=== PATIENT | female | born 1990 | race Caucasian/White ===

== ENCOUNTER 2016-07-24 19:05 | Outpatient (CLI) | payer OTHER ==
[~2016-07-24] VITALS: Ht 149.9 cm; Wt 58.2 kg
[~2016-07-24 19:05] MED LIST: FER325 PO; LABE100T3 PO; PRENAT PO
[2016-07-24] MEDS ORDERED: LABETALOL 100 MG TAB PO SCH (19:40)
[2016-07-24 19:42] VITALS: Ht 149.9 cm; Wt 58.2 kg
[2016-07-24 19:47] VITALS: BP 138/97; PULSE 71; RESP 18
[2016-07-24 20:09] LABS: ADD UMIC YES; URINE BILIRUBIN (Dip) NEGATIVE (NEGATIVE); URINE BLOOD (Dip) NEGATIVE (NEGATIVE); URINE COLOR LT. YELLOW (YELLOW); URINE GLUCOSE (Dip) NEGATIVE (NEGATIVE); URINE KETONES (Dip) NEGATIVE (NEGATIVE); URINE LEUKOCYTE ESTERASE (Dip) TRACE (NEGATIVE); URINE NITRITE (Dip) NEGATIVE (NEGATIVE); URINE TOTAL PROTEIN (Dip) NEGATIVE (NEGATIVE); URINE UROBILINOGEN (Dip) 0.2 E.U./dL (0.1-1.0)
[2016-07-24 20:23] LABS: BACTERIA,URINE RARE; SQUAMOUS EPITHELIAL CELL,UR FEW; URINE RBCS NONE SEEN /HPF (0)
[2016-07-24 20:27] LABS: ALBUMIN 3.4 g/dl (3.3-4.9); INR 0.91; PROTIME 12.3 Sec (12.2-14.2)
[2016-07-24 20:28] LABS: PARTIAL THROMBOPLASTIN TIME 23.3 Sec (25.0-35.0); POTASSIUM 3.1 mmol/L (3.5-5.1)
[2016-07-24 20:30] LABS: ALBUMIN/GLOBULIN RATIO 1.06; BILIRUBIN,INDIRECT 0.1 mg/dl (0-1.1); BILIRUBIN,TOTAL 0.1 mg/dl (0.2-1.3); CREATININE 0.45 mg/dl (0.44-1.00); TOTAL PROTEIN 6.6 g/dl (6.1-8.1)
[2016-07-24 20:31] LABS: CALCIUM 8.5 mg/dl (8.4-10.2); URIC ACID 3.2 mg/dl (3.1-7.9)
[2016-07-24 23:29] LABS: HEMATOCRIT 30.2 % (37.0-47.0); HEMOGLOBIN 10.3 g/dl (12.0-16.0); MEAN CORPUSCULAR HEMOGLOBIN 31.8 pg (29.0-33.0); MEAN CORPUSCULAR HGB CONC 34.1 g/dl (32.0-37.0); MEAN CORPUSCULAR VOLUME 93.2 fl (82.0-101.0); PLATELET COUNT 161 10^3/UL (140-440); RED BLOOD COUNT 3.24 10^6/ul (4.20-5.40); UNCORRECTED WBC 6.7 10^3/ul (4.8-10.8); WHITE BLOOD COUNT 6.7 10^3/ul (4.8-10.8)
[2016-07-24 23:30] LABS: BASOPHILS % 0.1 % (0.0-2.0); EOSINOPHILS % 0.3 % (0.0-7.0); LYMPHOCYTES # 1.5 10^3/ul (0.8-2.9); LYMPHOCYTES % 22.8 % (15.0-51.0); MONOCYTE # 0.7 10^3/ul (0.3-0.9); NEUTROPHIL # 4.4 10^3/ul (1.6-7.5); NEUTROPHILS % 66.2 % (39.0-77.0)
--- NOTE | 2016-07-24 23:42 | TRIAGE ---
OB Triage Datetime Report Generated by CPN: 07/24/2016 23:41 Datetime: 07/24/2016 22:02 Stage of : OB Triage Headache: Denies Nausea/Vomiting: Denies RUQ Epigastric Pain: Denies Labor Evaluation Frequency: Irregular Monitor Mode: External Duration (sec)2399: 40-80 Quality: Mild Pattern: Normal: <= 5 Contractions in 10 Minutes Resting Tone Kennedy: Relaxed Heart Rate FHR Baseline Rate: 130 Monitor Mode: External US FHR Baseline Changes: No Baseline Change Variability: Moderate 6-25 bpm Accelerations: 15X15 Decelerations: None Category: Category I Pain Assessment Pain Scale: 0 Pain Presence: None/Denies Pain Type: N/A Datetime: 07/24/2016 22:01 Stage of : OB Triage Datetime: 07/24/2016 21:00 Stage of : OB Triage Labor Evaluation Frequency: Irregular Monitor Mode: External Duration (sec)2399: 40-130 Quality: Mild Pattern: Normal: <= 5 Contractions in 10 Minutes Resting Tone Kennedy: Relaxed Heart Rate FHR Baseline Rate: 130 Monitor Mode: External US FHR Baseline Changes: No Baseline Change Variability: Moderate 6-25 bpm Accelerations: 15X15 Decelerations: None Category: Category I Datetime: 07/24/2016 20:00 Stage of : OB Triage Labor Evaluation Frequency: x1 Monitor Mode: External Duration (sec)2399: 60 Quality: Mild Pattern: Normal: <= 5 Contractions in 10 Minutes Resting Tone Kennedy: Relaxed Heart Rate FHR Baseline Rate: 130 Monitor Mode: External US Variability: Moderate 6-25 bpm Accelerations: 15X15 Decelerations: None Category: Category I Datetime: 07/24/2016 19:35 Stage of : OB Triage Datetime: 07/24/2016 19:25 Stage of : OB Triage Datetime: 07/24/2016 19:21 Monitor Mode: External Contraction Comments: Kennedy applied Heart Rate FHR Baseline Rate: 150 Monitor Mode: External US Comments: EFM applied Datetime: 07/24/2016 19:17 Stage of : OB Triage Assessment Type: Triage Maternal Assessment Level of Consciousness: Fully Conscious DTR's/Clonus: DTRs 2+; No Clonus Headache: Denies Blurred Vision: No Respiratory Effort: Unlabored; Regular Rhythm; Equal Expansion Breath Sounds, Left: Clear and Equal Breath Sounds, Right: Clear and Equal Nausea/Vomiting: Denies RUQ Epigastric Pain: Denies Lower Extremities Edema: None Degree: None Upper Extremities Edema: None Degree: None Facial Edema: None Temperature Route: Oral Fall Risk Assessment History of Falling: (0) No Secondary Diagnosis: (0) No Ambulatory Aid: (0) Bedrest/Nurse Assist IV Therapy: (0) No Gait: (0) Normal/Bedrest/Immobile Mental Status: (0) Oriented to Own Ability Fall Score: 0 Fall Risk Score Definition: No Risk: No action required Pain Assessment Pain Scale: 0 Pain Presence: None/Denies Pain Type: N/A Datetime: 07/24/2016 19:16 Time of Arrival: 07/24/2016 18:55 EGA: 34.6 Arrived By: Ambulatory Arrived From: Dr. Alves Chief Complaint: High BP in office. Currently on Labetalol. Didn't take it today. Rx ran out. Went to clinic for refill but BP elevated so sent to hospital. Movement: Present Contractions: Denies/Absent Rupture of Membranes: Denies Vaginal Bleeding: None Vaginal Discharge: Denies Abdominal Trauma: Not Applicable Patient Complaints: None Time Provider Notified: 07/24/2016 19:35 Provider Notified: Initial Plan: PIH panel, Labetalol 100mg PO stat, BPs [id number] x2hrs Datetime: 06/23/2016 11:00 Labor Evaluation Frequency: NONE Monitor Mode: External Pattern: Normal: <= 5 Contractions in 10 Minutes Resting Tone Kennedy: Relaxed Heart Rate FHR Baseline Rate: 140 Monitor Mode: External US FHR Baseline Changes: No Baseline Change Variability: Moderate 6-25 bpm Accelerations: 15X15 Decelerations: None Category: Category I Pain Assessment Pain Scale: 0 Pain Presence: None/Denies Pain Type: N/A Pain Goal: 2 Datetime: 06/23/2016 10:00 Labor Evaluation Frequency: NONE Monitor Mode: External Pattern: Normal: <= 5 Contractions in 10 Minutes Resting Tone Kennedy: Relaxed Contraction Comments: PT DENIES ABDOMINAL PAIN, CRAMPING OR UC'S Heart Rate FHR Baseline Rate: 135 Monitor Mode: External US FHR Baseline Changes: No Baseline Change Variability: Moderate 6-25 bpm Accelerations: 15X15 Decelerations: None Category: Category I Pain Assessment Pain Scale: 0 Pain Presence: None/Denies Pain Type: N/A Pain Goal: 2 Datetime: 06/23/2016 09:00 Labor Evaluation Frequency: NONE Monitor Mode: External Pattern: Normal: <= 5 Contractions in 10 Minutes Resting Tone Kennedy: Relaxed Contraction Comments: PT DENIES FEELING ABDOMINAL PAIN, CRAMPING OR UC'S Heart Rate FHR Baseline Rate: 135 Monitor Mode: External US FHR Baseline Changes: No Baseline Change Variability: Moderate 6-25 bpm Accelerations: 10X10 Decelerations: None Category: Category I Datetime: 06/23/2016 08:48 Pain Assessment Pain Scale: 0 Pain Presence: None/Denies Pain Type: N/A Pain Goal: 2 Datetime: 06/23/2016 08:00 Assessment Type: Ongoing Assessment Maternal Assessment Level of Consciousness: Fully Conscious DTR's/Clonus: DTRs 2+; No Clonus Headache: Denies Blurred Vision: No Respiratory Effort: Unlabored; Regular Rhythm; Equal Expansion Breath Sounds, Left: Clear and Equal Breath Sounds, Right: Clear and Equal Nausea/Vomiting: Denies RUQ Epigastric Pain: Denies Lower Extremities Edema: None Upper Extremities Edema: None Facial Edema: None Fall Risk Assessment History of Falling: (0) No Secondary Diagnosis: (0) No Ambulatory Aid: (0) Bedrest/Nurse Assist IV Therapy: (20) Yes Gait: (0) Normal/Bedrest/Immobile Mental Status: (0) Oriented to Own Ability Fall Score: 20 Fall Risk Score Definition: No Risk: No action required Labor Evaluation Frequency: NONE Monitor Mode: External Resting Tone Kennedy: Relaxed Contraction Comments: PT DENIES FEELILNG UC'S, ABDOMINAL PAIN, OR CRAMPING Heart Rate FHR Baseline Rate: 140 Monitor Mode: External US FHR Baseline Changes: No Baseline Change Variability: Moderate 6-25 bpm Accelerations: 10X10 Decelerations: None Category: Category I Datetime: 06/23/2016 07:00 Labor Evaluation Frequency: none Monitor Mode: External Resting Tone Kennedy: Relaxed Heart Rate FHR Baseline Rate: 135 Monitor Mode: External US Variability: Moderate 6-25 bpm Accelerations: 15X15 Decelerations: None Category: Category I Datetime: 06/23/2016 06:00 Labor Evaluation Frequency: none Monitor Mode: External Resting Tone Kennedy: Relaxed Heart Rate FHR Baseline Rate: 135 Monitor Mode: External US Variability: Moderate 6-25 bpm Accelerations: 10X10 Decelerations: None Category: Category I Datetime: 06/23/2016 05:29 Stage of : Antepartum Temperature Route: Oral Datetime: 06/23/2016 05:00 Labor Evaluation Frequency: x1 Monitor Mode: External Duration (sec)2399: 50 Quality: Mild Resting Tone Kennedy: Relaxed Contraction Comments: pt without complaint of uc pain Heart Rate FHR Baseline Rate: 130 Monitor Mode: External US Variability: Moderate 6-25 bpm Accelerations: 10X10 Decelerations: None Category: Category I Datetime: 06/23/2016 04:00 Labor Evaluation Frequency: none Monitor Mode: External Resting Tone Kennedy: Relaxed Heart Rate FHR Baseline Rate: 130 Monitor Mode: External US Variability: Moderate 6-25 bpm Accelerations: 15X15 Decelerations: None Category: Category I Datetime: 06/23/2016 03:00 Labor Evaluation Frequency: x2 Monitor Mode: External Duration (sec)2399: 40-50 Quality: Mild Resting Tone Kennedy: Relaxed Contraction Comments: pt without complaint of uc pain Datetime: 06/23/2016 02:00 Labor Evaluation Frequency: none Monitor Mode: External Resting Tone Kennedy: Relaxed Heart Rate FHR Baseline Rate: 125 Monitor Mode: External US Variability: Moderate 6-25 bpm Accelerations: 10X10 Decelerations: None Category: Category I Datetime: 06/23/2016 01:00 Labor Evaluation Frequency: x1 Monitor Mode: External Duration (sec)2399: 50 Quality: Mild Resting Tone Kennedy: Relaxed Contraction Comments: pt without complaint of uc pain Heart Rate FHR Baseline Rate: 120 Monitor Mode: External US Variability: Moderate 6-25 bpm Accelerations: 10X10 Decelerations: None Category: Category I Datetime: 06/23/2016 00:00 Labor Evaluation Frequency: none Monitor Mode: External Resting Tone Kennedy: Relaxed Heart Rate FHR Baseline Rate: 120 Monitor Mode: External US Variability: Moderate 6-25 bpm Accelerations: 15X15 Decelerations: None Category: Category I Datetime: 06/22/2016 23:00 Labor Evaluation Frequency: none Monitor Mode: External Resting Tone Kennedy: Relaxed Heart Rate FHR Baseline Rate: 130 Monitor Mode: External US Variability: Moderate 6-25 bpm Accelerations: 15X15 Decelerations: None Category: Category I Datetime: 06/22/2016 22:00 Labor Evaluation Frequency: none Monitor Mode: External Resting Tone Kennedy: Relaxed Heart Rate FHR Baseline Rate: 130 Monitor Mode: External US Variability: Moderate 6-25 bpm Accelerations: 15X15 Decelerations: None Category: Category I Pain Presence: None/Denies Datetime: 06/22/2016 21:00 Labor Evaluation Frequency: none Monitor Mode: External Resting Tone Kennedy: Relaxed Heart Rate FHR Baseline Rate: 140 Monitor Mode: External US Variability: Moderate 6-25 bpm Accelerations: 10X10 Decelerations: None Category: Category I Datetime: 06/22/2016 20:18 Assessment Type: Ongoing Assessment Maternal Assessment Level of Consciousness: Fully Conscious DTR's/Clonus: DTRs 2+; No Clonus Headache: Denies Blurred Vision: No Respiratory Effort: Unlabored; Regular Rhythm; Equal Expansion Breath Sounds, Left: Clear and Equal Breath Sounds, Right: Clear and Equal Nausea/Vomiting: Denies RUQ Epigastric Pain: Denies Lower Extremities Edema: None Degree: None Upper Extremities Edema: None Degree: None Facial Edema: None Fall Risk Assessment History of Falling: (0) No Secondary Diagnosis: (0) No Ambulatory Aid: (0) Bedrest/Nurse Assist IV Therapy: (20) Yes Gait: (0) Normal/Bedrest/Immobile Mental Status: (0) Oriented to Own Ability Fall Score: 20 Fall Risk Score Definition: No Risk: No action required Datetime: 06/22/2016 20:13 Stage of : Antepartum Temperature Route: Oral Datetime: 06/22/2016 20:00 Labor Evaluation Frequency: none Monitor Mode: External Resting Tone Kennedy: Relaxed Heart Rate FHR Baseline Rate: 130 Monitor Mode: External US Variability: Moderate 6-25 bpm Accelerations: 10X10 Decelerations: None Category: Category I Pain Presence: None/Denies Datetime: 06/22/2016 18:00 Stage of : Antepartum Maternal Assessment Level of Consciousness: Fully Conscious Headache: Denies Nausea/Vomiting: Denies RUQ Epigastric Pain: Denies Labor Evaluation Frequency: 0/hr Monitor Mode: External Heart Rate FHR Baseline Rate: 125 Monitor Mode: External US Variability: Moderate 6-25 bpm Accelerations: 15X15 Decelerations: None Pain Assessment Pain Scale: 0 Pain Presence: None/Denies Vaginal Bleeding: None Datetime: 06/22/2016 17:02 Stage of : Antepartum Maternal Assessment Level of Consciousness: Fully Conscious DTR's/Clonus: DTRs 2+ Headache: Denies Nausea/Vomiting: Denies RUQ Epigastric Pain: Denies Labor Evaluation Frequency: 0/hr Monitor Mode: External Heart Rate FHR Baseline Rate: 125 Monitor Mode: External US Variability: Moderate 6-25 bpm Accelerations: 15X15 Decelerations: None Pain Assessment Pain Scale: 0 Pain Presence: None/Denies Vaginal Bleeding: None Datetime: 06/22/2016 16:00 Stage of : Antepartum Maternal Assessment Level of Consciousness: Fully Conscious Headache: Denies Nausea/Vomiting: Denies RUQ Epigastric Pain: Denies Labor Evaluation Frequency: 0/hr Monitor Mode: External Heart Rate FHR Baseline Rate: 125 Monitor Mode: External US Variability: Moderate 6-25 bpm Accelerations: 15X15 Decelerations: None Pain Assessment Pain Scale: 0 Pain Presence: None/Denies Vaginal Bleeding: None Datetime: 06/22/2016 15:00 Stage of : Antepartum Maternal Assessment Level of Consciousness: Fully Conscious Headache: Denies Nausea/Vomiting: Denies RUQ Epigastric Pain: Denies Labor Evaluation Frequency: 0/hr Monitor Mode: External Heart Rate FHR Baseline Rate: 130 Monitor Mode: External US Variability: Moderate 6-25 bpm Accelerations: 15X15 Decelerations: None Pain Assessment Pain Scale: 0 Pain Presence: None/Denies Vaginal Bleeding: None Datetime: 06/22/2016 14:30 Pain Presence: None/Denies Datetime: 06/22/2016 14:00 Stage of : Antepartum Maternal Assessment Level of Consciousness: Fully Conscious DTR's/Clonus: DTRs 2+ Headache: Denies Nausea/Vomiting: Denies RUQ Epigastric Pain: Denies Labor Evaluation Frequency: 0/hr Monitor Mode: External Heart Rate FHR Baseline Rate: 125 Monitor Mode: External US Variability: Moderate 6-25 bpm Accelerations: 15X15 Decelerations: None Pain Assessment Pain Scale: 0 Pain Presence: None/Denies Vaginal Bleeding: None Datetime: 06/22/2016 13:01 Stage of : Antepartum Maternal Assessment Level of Consciousness: Fully Conscious Headache: Denies Nausea/Vomiting: Denies RUQ Epigastric Pain: Denies Labor Evaluation Frequency: 0/hr Monitor Mode: External Heart Rate FHR Baseline Rate: 125 Monitor Mode: External US Variability: Moderate 6-25 bpm Decelerations: None Pain Assessment Pain Scale: 0 Pain Presence: None/Denies Vaginal Bleeding: None Datetime: 06/22/2016 12:50 Maternal Assessment Level of Consciousness: Fully Conscious DTR's/Clonus: DTRs 2+ Headache: Denies Blurred Vision: No Nausea/Vomiting: Denies RUQ Epigastric Pain: Denies Datetime: 06/22/2016 12:09 Stage of : Antepartum Maternal Assessment Level of Consciousness: Fully Conscious Headache: Denies Nausea/Vomiting: Denies RUQ Epigastric Pain: Denies Labor Evaluation Frequency: 0/hr Monitor Mode: External Heart Rate FHR Baseline Rate: 125 Monitor Mode: External US Variability: Moderate 6-25 bpm Accelerations: 15X15 Decelerations: None Pain Assessment Pain Scale: 0 Pain Presence: None/Denies Vaginal Bleeding: None Datetime: 06/22/2016 11:02 Stage of : Antepartum Maternal Assessment Level of Consciousness: Fully Conscious DTR's/Clonus: DTRs 2+ Headache: Denies Breath Sounds, Left: Clear and Equal Breath Sounds, Right: Clear and Equal Nausea/Vomiting: Denies RUQ Epigastric Pain: Denies Labor Evaluation Frequency: 0/hr Monitor Mode: External Heart Rate FHR Baseline Rate: 125 Monitor Mode: External US Variability: Moderate 6-25 bpm Decelerations: None Comments: ega 30.2 Pain Assessment Pain Scale: 0 Pain Presence: None/Denies Vaginal Bleeding: None Datetime: 06/22/2016 10:40 Heart Rate FHR Baseline Rate: 125 Monitor Mode: External US Variability: Moderate 6-25 bpm Decelerations: None Datetime: 06/22/2016 10:22 Stage of : Antepartum Datetime: 06/22/2016 10:21 Maternal Assessment Level of Consciousness: Fully Conscious DTR's/Clonus: DTRs 2+ Headache: Denies Blurred Vision: Yes Respiratory Effort: Unlabored Breath Sounds, Left: Clear and Equal Breath Sounds, Right: Clear and Equal Nausea/Vomiting: Denies RUQ Epigastric Pain: Denies Datetime: 06/22/2016 10:01 Stage of : Antepartum Maternal Assessment Level of Consciousness: Fully Conscious Headache: Denies Nausea/Vomiting: Denies RUQ Epigastric Pain: Denies Labor Evaluation Frequency: occassional Monitor Mode: External Duration (sec)2399: 60 Heart Rate FHR Baseline Rate: 125 Monitor Mode: External US Variability: Moderate 6-25 bpm Decelerations: None Pain Assessment Pain Scale: 0 Pain Presence: None/Denies Vaginal Bleeding: None Datetime: 06/22/2016 09:01 Stage of : Antepartum Maternal Assessment Level of Consciousness: Fully Conscious DTR's/Clonus: DTRs 2+ Headache: Denies Nausea/Vomiting: Denies RUQ Epigastric Pain: Denies Labor Evaluation Frequency: 1/hr Monitor Mode: External Duration (sec)2399: 60 Quality: Mild Resting Tone Kennedy: Relaxed Heart Rate FHR Baseline Rate: 125 Monitor Mode: External US Variability: Moderate 6-25 bpm Decelerations: None Comments: ega 30.2 Pain Assessment Pain Scale: 0 Pain Presence: None/Denies Vaginal Bleeding: None Datetime: 06/22/2016 08:03 Stage of : Antepartum Maternal Assessment Level of Consciousness: Fully Conscious Headache: Denies Nausea/Vomiting: Denies RUQ Epigastric Pain: Denies Labor Evaluation Frequency: 0/hr Monitor Mode: External Resting Tone Kennedy: Relaxed Heart Rate FHR Baseline Rate: 125 Monitor Mode: External US Variability: Moderate 6-25 bpm Pain Assessment Pain Scale: 0 Pain Presence: None/Denies Vaginal Bleeding: None Datetime: 06/22/2016 07:16 Stage of : Antepartum Assessment Type: Ongoing Assessment Maternal Assessment Level of Consciousness: Fully Conscious Maternal Assessment Level of Consciousness: Fully Conscious DTR's/Clonus: DTRs 2+; No Clonus DTR's/Clonus: DTRs 2+ Headache: Denies Headache: Denies Blurred Vision: No Respiratory Effort: Unlabored; Regular Rhythm; Equal Expansion Breath Sounds, Left: Clear and Equal Breath Sounds, Left: Clear and Equal Breath Sounds, Right: Clear and Equal Breath Sounds, Right: Clear and Equal Nausea/Vomiting: Denies Nausea/Vomiting: Denies RUQ Epigastric Pain: Denies RUQ Epigastric Pain: Denies Lower Extremities Edema: None Upper Extremities Edema: None Facial Edema: None Temperature Route: Oral Fall Risk Assessment History of Falling: (0) No Secondary Diagnosis: (0) No Ambulatory Aid: (0) Bedrest/Nurse Assist IV Therapy: (20) Yes Gait: (0) Normal/Bedrest/Immobile Mental Status: (0) Oriented to Own Ability Fall Score: 20 Fall Risk Score Definition: No Risk: No action required Labor Evaluation Frequency: 0/hr Monitor Mode: External Resting Tone Kennedy: Relaxed Heart Rate FHR Baseline Rate: 125 Monitor Mode: External US Variability: Moderate 6-25 bpm Pain Assessment Pain Scale: 0 Pain Presence: None/Denies Vaginal Exam Membrane Status: Intact Vaginal Bleeding: None Datetime: 06/22/2016 06:35 Stage of : Antepartum Maternal Assessment Level of Consciousness: Fully Conscious Labor Evaluation Frequency: 0 Monitor Mode: External Resting Tone Kennedy: Relaxed Heart Rate FHR Baseline Rate: 120 Monitor Mode: External US FHR Baseline Changes: No Baseline Change Variability: Moderate 6-25 bpm Accelerations: 10X10 Decelerations: None Pain Assessment Pain Scale: 0 Pain Location: Head Pain Goal: 3 Pain Relief Measures: Comfort Measures Datetime: 06/22/2016 05:35 Stage of : Antepartum Maternal Assessment Level of Consciousness: Fully Conscious Labor Evaluation Frequency: 0 Monitor Mode: External Resting Tone Kennedy: Relaxed Heart Rate FHR Baseline Rate: 120 Monitor Mode: External US FHR Baseline Changes: No Baseline Change Variability: Moderate 6-25 bpm Accelerations: 10X10 Decelerations: None Pain Assessment Pain Scale: 0 Pain Location: Head Pain Goal: 3 Pain Relief Measures: Comfort Measures Datetime: 06/22/2016 04:35 Stage of : Antepartum Maternal Assessment Level of Consciousness: Fully Conscious Labor Evaluation Frequency: 0 Monitor Mode: External Resting Tone Kennedy: Relaxed Heart Rate FHR Baseline Rate: 120 Monitor Mode: External US FHR Baseline Changes: No Baseline Change Variability: Moderate 6-25 bpm Accelerations: 10X10 Decelerations: None Pain Assessment Pain Scale: 0 Pain Location: Head Pain Goal: 3 Pain Relief Measures: Comfort Measures Datetime: 06/22/2016 03:36 Stage of : Antepartum Maternal Assessment Level of Consciousness: Fully Conscious Temperature Route: Oral Labor Evaluation Frequency: 0 Monitor Mode: External Resting Tone Kennedy: Relaxed Heart Rate FHR Baseline Rate: 118 Monitor Mode: External US FHR Baseline Changes: No Baseline Change Variability: Moderate 6-25 bpm Accelerations: 10X10 Decelerations: None Pain Assessment Pain Scale: 0 Pain Location: Head Pain Goal: 3 Pain Relief Measures: Comfort Measures Datetime: 06/22/2016 02:41 Stage of : Antepartum Maternal Assessment Level of Consciousness: Fully Conscious Labor Evaluation Frequency: 0 Monitor Mode: External Resting Tone Kennedy: Relaxed Heart Rate FHR Baseline Rate: 118 Monitor Mode: External US FHR Baseline Changes: No Baseline Change Variability: Moderate 6-25 bpm Accelerations: 10X10 Decelerations: None Pain Assessment Pain Scale: 0 Pain Location: Head Pain Goal: 3 Pain Relief Measures: Comfort Measures Datetime: 06/22/2016 01:36 Stage of : Antepartum Maternal Assessment Level of Consciousness: Fully Conscious Labor Evaluation Frequency: 0 Monitor Mode: External Resting Tone Kennedy: Relaxed Heart Rate FHR Baseline Rate: 118 Monitor Mode: External US FHR Baseline Changes: No Baseline Change Variability: Moderate 6-25 bpm Accelerations: 10X10 Decelerations: None Pain Assessment Pain Scale: 0 Pain Location: Head Pain Goal: 3 Pain Relief Measures: Comfort Measures Datetime: 06/22/2016 00:35 Stage of : Antepartum Maternal Assessment Level of Consciousness: Fully Conscious DTR's/Clonus: DTRs 2+; No Clonus Headache: Denies Breath Sounds, Left: Clear and Equal Breath Sounds, Right: Clear and Equal Labor Evaluation Frequency: 0 Monitor Mode: External Resting Tone Kennedy: Relaxed Heart Rate FHR Baseline Rate: 135 Monitor Mode: External US FHR Baseline Changes: No Baseline Change Variability: Moderate 6-25 bpm Accelerations: 10X10 Decelerations: None Pain Assessment Pain Scale: 0 Pain Location: Head Pain Goal: 3 Pain Relief Measures: Comfort Measures Datetime: 06/21/2016 23:35 Stage of : Antepartum Maternal Assessment Level of Consciousness: Fully Conscious DTR's/Clonus: DTRs 2+; No Clonus Headache: Denies Breath Sounds, Left: Clear and Equal Breath Sounds, Right: Clear and Equal Temperature Route: Oral Labor Evaluation Frequency: 0 Monitor Mode: External Resting Tone Kennedy: Relaxed Heart Rate FHR Baseline Rate: 135 Monitor Mode: External US FHR Baseline Changes: No Baseline Change Variability: Moderate 6-25 bpm Accelerations: 10X10 Decelerations: None Pain Assessment Pain Scale: 0 Pain Location: Head Pain Goal: 3 Pain Relief Measures: Comfort Measures Datetime: 06/21/2016 22:35 Stage of : Antepartum Maternal Assessment Level of Consciousness: Fully Conscious DTR's/Clonus: DTRs 2+; No Clonus Headache: Denies Breath Sounds, Left: Clear and Equal Breath Sounds, Right: Clear and Equal Nausea/Vomiting: Denies RUQ Epigastric Pain: Denies Labor Evaluation Frequency: 0 Monitor Mode: External Resting Tone Kennedy: Relaxed Heart Rate FHR Baseline Rate: 135 Monitor Mode: External US FHR Baseline Changes: No Baseline Change Variability: Moderate 6-25 bpm Accelerations: 10X10 Decelerations: None Pain Assessment Pain Scale: 0 Pain Location: Head Pain Goal: 3 Pain Relief Measures: Comfort Measures Datetime: 06/21/2016 21:35 Stage of : Antepartum Maternal Assessment Level of Consciousness: Fully Conscious DTR's/Clonus: DTRs 2+; No Clonus Headache: Denies Breath Sounds, Left: Clear and Equal Breath Sounds, Right: Clear and Equal Nausea/Vomiting: Denies RUQ Epigastric Pain: Denies Labor Evaluation Frequency: 0 Monitor Mode: External Resting Tone Kennedy: Relaxed Heart Rate FHR Baseline Rate: 135 Monitor Mode: External US FHR Baseline Changes: No Baseline Change Variability: Moderate 6-25 bpm Accelerations: 10X10 Decelerations: None Pain Assessment Pain Scale: 0 Pain Location: Head Pain Goal: 3 Pain Relief Measures: Comfort Measures Datetime: 06/21/2016 20:35 Stage of : Antepartum Maternal Assessment Level of Consciousness: Fully Conscious DTR's/Clonus: DTRs 2+; No Clonus Headache: Denies Breath Sounds, Left: Clear and Equal Breath Sounds, Right: Clear and Equal Nausea/Vomiting: Denies RUQ Epigastric Pain: Denies Labor Evaluation Frequency: 0 Monitor Mode: External Resting Tone Kennedy: Relaxed Heart Rate FHR Baseline Rate: 135 Monitor Mode: External US FHR Baseline Changes: No Baseline Change Variability: Moderate 6-25 bpm Accelerations: 10X10 Decelerations: None Pain Assessment Pain Scale: 0 Pain Location: Head Pain Goal: 3 Pain Relief Measures: Comfort Measures Datetime: 06/21/2016 19:35 Stage of : Antepartum Assessment Type: Admission Assessment Maternal Assessment Level of Consciousness: Fully Conscious DTR's/Clonus: DTRs 2+; No Clonus Headache: Denies Blurred Vision: No Respiratory Effort: Unlabored; Regular Rhythm; Equal Expansion Breath Sounds, Left: Clear and Equal Breath Sounds, Right: Clear and Equal Nausea/Vomiting: Denies RUQ Epigastric Pain: Denies Facial Edema: None Temperature Route: Oral Fall Risk Assessment History of Falling: (0) No Secondary Diagnosis: (0) No Ambulatory Aid: (0) Bedrest/Nurse Assist IV Therapy: (20) Yes Gait: (0) Normal/Bedrest/Immobile Mental Status: (0) Oriented to Own Ability Fall Score: 20 Fall Risk Score Definition: No Risk: No action required Labor Evaluation Frequency: 0 Monitor Mode: External Resting Tone Kennedy: Relaxed Heart Rate FHR Baseline Rate: 135 Monitor Mode: External US FHR Baseline Changes: No Baseline Change Variability: Moderate 6-25 bpm Accelerations: 10X10 Decelerations: None Category: Category I Pain Assessment Pain Scale: 0 Pain Location: Head Pain Goal: 3 Pain Relief Measures: Comfort Measures Datetime: 06/21/2016 18:43 Assessment Type: Admission Assessment Vaginal Bleeding: None Maternal Assessment Level of Consciousness: Fully Conscious DTR's/Clonus: DTRs 2+; No Clonus Headache: Denies Blurred Vision: No Respiratory Effort: Unlabored; Regular Rhythm; Equal Expansion Breath Sounds, Left: Clear and Equal Breath Sounds, Right: Clear and Equal Nausea/Vomiting: Denies RUQ Epigastric Pain: Denies Facial Edema: None Fall Risk Assessment History of Falling: (0) No Secondary Diagnosis: (0) No Ambulatory Aid: (0) Bedrest/Nurse Assist IV Therapy: (20) Yes Gait: (0) Normal/Bedrest/Immobile Mental Status: (0) Oriented to Own Ability Fall Score: 20 Fall Risk Score Definition: No Risk: No action required Pain Assessment Pain Scale: 0 Pain Presence: None/Denies Datetime: 06/21/2016 18:28 Stage of : Antepartum Maternal Assessment Level of Consciousness: Fully Conscious DTR's/Clonus: DTRs 2+ Headache: Denies Breath Sounds, Left: Clear and Equal Breath Sounds, Right: Clear and Equal Nausea/Vomiting: Denies RUQ Epigastric Pain: Denies Temperature Route: Oral Monitor Mode: External Monitor Mode: External US Pain Assessment Pain Scale: 0 Pain Presence: None/Denies Vaginal Exam Membrane Status: Intact Vaginal Bleeding: None Datetime: 06/21/2016 18:07 Heart Rate FHR Baseline Rate: 145 Variability: Moderate 6-25 bpm Decelerations: None Datetime: 06/21/2016 17:36 Stage of : Antepartum Datetime: 06/21/2016 17:28 Stage of : OB Triage Datetime: 06/21/2016 17:15 Maternal Assessment Level of Consciousness: Fully Conscious DTR's/Clonus: DTRs 2+; No Clonus Headache: Denies Blurred Vision: No Nausea/Vomiting: Denies RUQ Epigastric Pain: Denies Facial Edema: None Labor Evaluation Frequency: 0 Monitor Mode: External Resting Tone Kennedy: Relaxed Heart Rate FHR Baseline Rate: 140 Monitor Mode: External US FHR Baseline Changes: No Baseline Change Variability: Moderate 6-25 bpm Accelerations: 15X15 Decelerations: None Category: Category I Pain Assessment Pain Scale: 0 Pain Presence: None/Denies Pain Type: N/A Datetime: 06/21/2016 17:00 Stage of : OB Triage Datetime: 06/21/2016 16:50 Assessment Type: Triage Maternal Assessment Level of Consciousness: Fully Conscious DTR's/Clonus: DTRs 2+; No Clonus Headache: Denies Blurred Vision: No Respiratory Effort: Unlabored; Regular Rhythm Breath Sounds, Left: Clear and Equal Breath Sounds, Right: Clear and Equal Nausea/Vomiting: Denies RUQ Epigastric Pain: Denies Lower Extremities Edema: None Degree: None Upper Extremities Edema: None Degree: None Facial Edema: None Fall Risk Assessment History of Falling: (0) No Secondary Diagnosis: (0) No Ambulatory Aid: (0) Bedrest/Nurse Assist IV Therapy: (0) No Gait: (0) Normal/Bedrest/Immobile Mental Status: (0) Oriented to Own Ability Fall Score: 0 Fall Risk Score Definition: No Risk: No action required Datetime: 06/21/2016 16:48 Time of Arrival: 06/21/2016 17:30 EGA: 30.1 Arrived By: Stretcher Arrived From: Dr. Alves Movement: Present Contractions: Denies/Absent Vaginal Discharge: Denies Recent Sexual Intercouse: Denies Datetime: 06/21/2016 16:45 Stage of : OB Triage Datetime: 06/21/2016 16:41 Pain Assessment Pain Scale: 0 Pain Presence: None/Denies Pain Type: N/A Datetime: 06/21/2016 16:39 Stage of : OB Triage Monitor Mode: External US Datetime: 06/21/2016 16:37 Time of Arrival: 06/21/2016 16:28 Arrived By: Ambulatory Arrived From: Office Chief Complaint: PT PRESENTS TO TRIAGE FOR EVALUATION DUE TO HIGH BLOOD PRESSURES IN CLINIC Movement: Present Contractions: Denies/Absent Rupture of Membranes: Denies Vaginal Bleeding: None Vaginal Discharge: Denies Recent Sexual Intercouse: Denies Abdominal Trauma: Not Applicable Patient Complaints: None Time Provider Notified: 06/21/2016 17:00 Provider Notified: LUCIANA Initial Plan: EFM/PIH LABS, BPP, EFW,
== END 2016-07-24 22:16 | disposition home or self-care (01) ==
LOC: OBT 19:05 → L-D 19:06 → OBT 22:16
PROVIDERS: ATTEND Obstetrics & Gynecology
DX: O47.03 False labor before 37 completed weeks of gestation, third trimester (principal); O14.93 Unspecified pre-eclampsia, third trimester; Z3A.49 Greater than 42 weeks gestation of pregnancy
CPT/HCPCS: 80053; 81001; 84560; 85025; 85610; 85730; Z7500; Z7610; 81003; G0463

== ENCOUNTER 2016-07-27 15:09 | Outpatient (CLI) | payer OTHER ==
--- NOTE | 2016-07-25 03:23 | QN ---
Documentation Comment 26-year-old with IUP at 34 weeks and 6 days with history of chronic hypertension and care with Dr. Nuñez presented to labor and delivery for blood pressure check due to elevated blood pressure noted during office visit today. She had a history of chronic hypertension. Had been taking labetalol 100 mg twice a day as needed elevated blood pressure. She ran out of her medication today and during her usual office visit noted to have elevated blood pressure. Patient denies any headache blurred vision or epigastric pain. Patient denies any other symptom. Denies any leaking of fluid vaginal bleeding or uterine contractions. Physical examination: General appearance: Alert and oriented 4 and not in acute distress Abdomen: Soft, gravid no rebound tenderness no guarding. Fundal height consistent with gestational age. Extremities: No calf tenderness no click no edema. NST: Category 1. Blood pressures monitored during observation and was 140s 150s over 80s-90s. She received a dose of oral labetalol and now in triage. After that her blood pressure is in 130s-80s. She continued to be asymptomatic. PIH lab ordered on negative. NST: Category 1. BPP: 8 out of 8. PROCEDURE: US OB CLINICAL INDICATION: Hypertension TECHNIQUE: Multiple sonographic images of the pelvis were obtained. The images were reviewed on a PACS workstation. COMPARISON: None FINDINGS: The cervix is not well visualized. There is a single viable intrauterine gestation. Cardiac activity is present with 152 beats per minute. There is a vertex presentation. The placenta is anterior. There is no evidence for an abruption or placenta previa. There is an elevated amount of amniotic fluid with an LYNDSEY = 23.5 cm. Measurements were made in order to determine age. The results are as follows (cm): BPD = 7.42 HC = 27.15 AC = 27.42 FL = 5.88 Estimated gestational age by ultrasound of approximately 30 weeks, 3 days. The estimated date of delivery by ultrasound is 08/27/2016. Reported gestational age by LMP of approximately 30 weeks, 1 day. The reported date of delivery by LMP is 08/29/2016. EFW = 1663 grams (64th percentile by ultrasound) IMPRESSION: Single viable intrauterine gestation of approximately 30 weeks, 3 days . The estimated date of delivery is 08/27/2016 . Dating by ultrasound is within 2 days of dating by LMP. Elevated LYNDSEY of 23.5 cm. RPTAT: EE Matthias Coronel Physician Date Time Electronically viewed and signed by Matthias Coronel Physician on 06/21/2016 17:33 RA/ CC: JAMIE CHOWDHURY M.D. Patient had been seen at [facility] perinatology and was recommended to start testing starting at 34 weeks. She has currently appointment with her OB clinic Dr. Nuñez next week. Patient currently does not show any evidence of superimposed severe preeclampsia. She was advised to continue taking her oral labetalol as was advised by her primary OB. Sinus symptoms of preeclampsia discussed with the patient in detail. Patient verbalized understanding. Patient will be booked to return back to triage in 3 days for NST and BPP and continue follow-up with her OB clinic next week. Understands that she needs to have biweekly testing. She was not also noted to have borderline elevated polyhydramnios. needs to have follow-up with her OB clinic for this as well. BEN MENDEZ MD Jul 25, 2016 03:23
[~2016-07-27] VITALS: Ht 152.4 cm; Wt 58.1 kg
[2016-07-27 15:23] VITALS: Ht 152.4 cm; Wt 58.1 kg
[2016-07-27 15:33] VITALS: BP 138/92; PULSE 67; RESP 18
--- NOTE | 2016-07-27 15:56 | RADRPT ---
PROCEDURE: OB ultrasound for biophysical profile. CLINICAL INDICATION: Biophysical profile. TECHNIQUE: Multiple sonographic images of the pelvis were obtained. Transabdominal view of the gr avid uterus are available for review. COMPARISON: 06/21/2016. FINDINGS: breathing movement = 2/2 tone = 2/2 motion = 2/2 LYNDSEY = 14.2 cm Single live intrauterine with cardiac activity (131 beats per minute). IMPRESSION: 1. Single viable intrauterine gestation. 2. Biophysical profile = 8/8. 3. LYNDSEY = 6.8 cm. RPTAT: EE .Eduardo Steiner MD, Date Time Electronically viewed and signed by .Eduardo Steiner MD, on 07/27/2016 16:00 .C/
--- NOTE | 2016-07-27 17:21 | TRIAGE ---
OB Triage Datetime Report Generated by CPN: 07/27/2016 17:21 Datetime: 07/27/2016 16:08 Monitor Mode: External Quality: Mild Pattern: Normal: <= 5 Contractions in 10 Minutes Resting Tone [place]: Relaxed Contraction Comments: PT DENIES FEELING UCS Heart Rate FHR Baseline Rate: 135 Monitor Mode: External US FHR Baseline Changes: No Baseline Change Variability: Moderate 6-25 bpm Accelerations: 15X15 Decelerations: None Category: Category I Datetime: 07/27/2016 15:37 Stage of : OB Triage Labor Evaluation Frequency: X1 Monitor Mode: External Duration (sec)2399: 70 Quality: Mild Pattern: Normal: <= 5 Contractions in 10 Minutes Resting Tone [place]: Relaxed Heart Rate FHR Baseline Rate: 135 Monitor Mode: External US Variability: Moderate 6-25 bpm Accelerations: 15X15 Decelerations: None Category: Category I Datetime: 07/27/2016 15:35 Assessment Type: Triage Maternal Assessment Level of Consciousness: Fully Conscious DTR's/Clonus: DTRs 2+; No Clonus Headache: Denies Blurred Vision: No Respiratory Effort: Unlabored; Regular Rhythm; Equal Expansion Breath Sounds, Left: Clear and Equal Breath Sounds, Right: Clear and Equal Nausea/Vomiting: Denies RUQ Epigastric Pain: Denies Lower Extremities Edema: None Upper Extremities Edema: None Facial Edema: None Fall Risk Assessment History of Falling: (0) No Secondary Diagnosis: (0) No Ambulatory Aid: (0) Bedrest/Nurse Assist IV Therapy: (0) No Gait: (0) Normal/Bedrest/Immobile Mental Status: (0) Oriented to Own Ability Fall Score: 0 Fall Risk Score Definition: No Risk: No action required Datetime: 07/27/2016 15:26 Time of Arrival: 07/27/2016 15:05 EGA: 35.2 Arrived By: Ambulatory Arrived From: Home Movement: Present Contractions: Denies/Absent Rupture of Membranes: Denies Vaginal Bleeding: None Vaginal Discharge: Denies Recent Sexual Intercouse: Denies Abdominal Trauma: Not Applicable Patient Complaints: None Time Provider Notified: 07/27/2016 14:15 Provider Notified: DR GAMA Initial Plan: ORDERS FOR NST/ BPP Datetime: 07/24/2016 19:17 Fall Score: 0 Fall Risk Score Definition: No Risk: No action required Datetime: 07/24/2016 19:16 EGA: 34.6 Datetime: 06/23/2016 08:00 Fall Score: 20 Fall Risk Score Definition: No Risk: No action required Datetime: 06/22/2016 20:18 Fall Score: 20 Fall Risk Score Definition: No Risk: No action required Datetime: 06/22/2016 07:16 Fall Score: 20 Fall Risk Score Definition: No Risk: No action required Datetime: 06/21/2016 19:35 Fall Score: 20 Fall Risk Score Definition: No Risk: No action required Datetime: 06/21/2016 18:43 Fall Score: 20 Fall Risk Score Definition: No Risk: No action required Datetime: 06/21/2016 16:50 Fall Score: 0 Fall Risk Score Definition: No Risk: No action required Datetime: 06/21/2016 16:48 EGA: 30.1
--- NOTE | 2016-07-27 17:23 | QN ---
Documentation Comment [facility]/Dr Nuñez 26 y.o. A1 with an IUP at 35 weeks 2 days here for a f/u NST/BPP. Pt with chronic HTN and on Labetolol 100 mg BID. Pt was here a few days ago when her BP was noted to be elevated at a clinic visit after a missed medication dose and which lowered appropriately with the medication administered. Pt denies CHAIREZ;'s, epigastric pain, undue swelling, visual changes. At her last visit the EFW was 1663 grams and the LYNDSEY was 23.5. PMHx:none except the CHTN. PSHx: none. All: Ibuprofen,sulfa, latex. BP= 138/92, 152.84. T= 98.1. NST: baseline 130 bpm with accels to 160 bpm. No decels. No UC's. BPP: 8/8. LYNDSEY 6.8 cm. A: IUP at 35 weeks 2 days. Chronic HTN. P: Pt is to call her clinic on Friday and ask them to schedule her in NST clinic twice a week, hopefully Tuesdays and Fridays. Reviewed PIH precautions with the pt. NEAL GAMA MD Jul 27, 2016 17:23
== END 2016-07-27 17:13 | disposition home or self-care (01) ==
LOC: OBT 15:09 → L-D 15:10 → OBT 17:13
PROVIDERS: ATTEND Obstetrics & Gynecology
DX: O10.013 Pre-existing essential hypertension complicating pregnancy, third trimester (principal); Z3A.35 35 weeks gestation of pregnancy
CPT/HCPCS: 76818; Z7500; G0463

== ENCOUNTER 2017-12-09 17:14 | Emergency (ER) | END 2017-12-09 19:44 | disposition home or self-care (01) ==